=== PATIENT | female | born 1980 | race Caucasian/White ===

== ENCOUNTER → 2020-12-23 00:02 | Outpatient (CLI) | payer OTHER, SELFPAY ==
[2020-12-23 19:15] LABS: SARS-CoV-2 RNA PCR Negative
== END ==
PROVIDERS: Visit Provider Surgery Plastic and Reconstructive Surgery
DX: Z01.812 Encounter for preprocedural laboratory examination (principal); Z20.822 Contact with and (suspected) exposure to COVID-19
CPT/HCPCS: C9803; U0003; U0005

== ENCOUNTER 2020-12-23 08:03 | Outpatient (CLI) | payer OTHER, SELFPAY ==
[2020-12-23 08:28] LABS: Hematocrit 42.2 % (37.0-47.0); Hemoglobin 13.4 g/dL (12.0-15.0)
--- NOTE | 2020-12-23 08:30 | ECG_ITS ---
Measurements Intervals [place] Rate: 73 P: 53 LA: 178 QRS: 36 QRSD: 68 T: 37 QT: 369 QTc: 409 Interpretive Statements SINUS RHYTHM LOW QRS VOLTAGE IN PRECORDIAL LEADS BASELINE ARTIFACT- I, II, III, AVR, AVL, AVF, V6 BORDERLINE ECG Electronically Signed On 12-23-2020 8:22:20 CDT by Sha Cardoza D.O.
== END 2020-12-23 08:04 | disposition home or self-care (01) ==
PROVIDERS: Anesthesiology; Visit Provider Surgery Plastic and Reconstructive Surgery
DX: Z41.9 Encounter for procedure for purposes other than remedying health state, unspecified (principal); R94.31 Abnormal electrocardiogram [ECG] [EKG]
CPT/HCPCS: 36415; 85014; 85018; 93005

== ENCOUNTER 2020-12-26 00:34 | Day surgery (SDC) | payer OTHER, SELFPAY ==
[2020-12-17 09:55] VITALS: BMI 33.9
[2020-12-26] VITALS (10 sets, daily range): BP systolic 126–145; BP diastolic 85–98; PULSE 56–84; RESP 15–20; TEMP 36–36.5; O2SAT 96–100
[2020-12-26] MEDS: LACTATED RINGERS 1,000 ML 30 ML IV CONT ×2 (06:45→12:36)
[2020-12-26 06:47] LABS: Urine Cotinine NEGATIVE
--- NOTE | 2020-12-26 06:53 | WPDHPUPDATE1 ---
History and Physical Update Update Date/Time: 12/26/20 06:53 History and Physical has been reviewed, including an updated exam of the patient. There are NO changes in the patient's condition. Risks, benefits, and alternatives have been discussed and questions answered. Patient agrees to proceed with procedure.
--- NOTE | 2020-12-26 06:55 | WPDANESEPPF ---
Anes - Initial Pre Proc Eval Procedure: Operation Date: 12/26/20 07:30 Proposed Procedures p Bilateral Augmentation Mammoplasty With Breast Lift, - Ambrosio Muller MD s Abdominal Liposuction - Ambrosio Muller MD Date/Time: 12/26/20 06:55 Surgeon: Ambrosio Muller MD Pre Op Diagnosis: macromastia, breast ptosis, localized adiposity Patient Data Age: 40 Gender: F Height: 5 ft 9 in Weight: 104.3 kg Allergies Allergy/AdvReac Type Severity Reaction Status Date / Time No Known Allergies Allergy Verified 12/17/20 09:55 Home Medications Medication Instructions Recorded Confirmed Type docusate sodium 100 mg capsule 100 mg PO DAILY #14 cap 12/11/20 12/17/20 Rx ondansetron HCl 4 mg tablet 4 mg PO Q8H #28 tablet 12/11/20 12/17/20 Rx carisoprodol 350 mg tablet 350 mg PO TID PRN #21 tablet 12/12/20 12/17/20 Rx oxycodone-acetaminophen 5 mg-325 1 tablet PO Q6H PRN #15 tablet 12/12/20 12/17/20 Rx mg tablet Laboratory Tests 12/26/20 06:32 Cotinine Negative Patient hx anesthesia problems: none Family hx anesthesia problems: none PMFSH Social History Social History Smoking status: Never smoker Alcohol intake: current Alcohol use details: 1/MONTH Substance use: never Substance use type: does not use Living arrangements: with family Spiritual care concerns: No Anes - Eval Final PreProcedure Day of Procedure 12/26/20 06:55 Patient weight: overweight Heart: regular rate and rhythm Lungs: clear to auscultation Airway: Mallampati scale class II Neurological: alert and oriented Last oral intake: >/= 8 hours ASA classification: II Emergent: no Anesthetic plan: proceed Anesthesia type and monitoring: general LMA and standard monitoring Informed Consent: The patient's anesthetic plan and its attendant risks and benefits were discussed with the patient/family/POA. Questions were solicited and answers provided to the satisfaction of the patient/family/POA.
--- NOTE | 2020-12-26 07:18 | PM.PROC ---
Procedure Note - Detailed Date of procedure: 12/26/20 Pre-op diagnosis: macromastia, breast ptosis, localized adiposity Post-op diagnosis: same Procedure performed: 1. Bilateral breast augmentation 2. Bilateral breast mastopexy 3. Suction lipectomy of abdomen Description of procedure: She is here today for bilateral breast augmentation mastopexy with suction lipectomy of abdomen. Previously and again today the risks, benefits, alternatives were discussed in extensive detail. I wanted her to be very realistic about the risks involved as well as expectations. We discussed aftercare and what to monitor for. She understands she is at high risk of skin laxity of the abdomen. She must be willing to accept that to proceed and she is. Made sure answered all of her questions to her and her 's satisfaction today. They voiced understanding. Consent was obtained. Marked in the preoperative holding area with their verification. The patient was taken to the operating room placed supine on the operating table. Anesthesia was provided by anesthesiology. A surgical time-out was taken. We cleansed the skin and 1% lidocaine and 0.25% Marcaine with epinephrine was used anesthetize as a field block. She was prepped and draped in a standard sterile fashion. Tegaderm nipple Velázquez were placed. A 15 blade used to make an incision just above the inframammary fold. Dissection was continued until the chest wall as identified. I incised the pectoralis major along its inferior border and completely released the inferior border leaving the medial border intact. I created a subpectoral pocket in the appropriate dimensions based on our preoperative planning for the implant. I then copiously irrigated with saline solution and verified a strict hemostasis. Next the use a triple antibiotic and Betadine containing solution to irrigate the pocket. I washed my gloves with the triple antibiotic and Betadine solution. We washed the implant immediately upon opening it with this solution and only opened it when we needed it. I used implant funnel and no-touch technique. The implant was introduced into the pocket using the funnel. Having verified positioning of the implant this was closed using 2-0 Vicryl. At the T junction I de-epithelialized a flap to protect any exposure at the T junction of there were to be breakdown. I tailor tacked the breast into position and placed her in a sitting position. Marked out the nipple-areolar complex at 42 mm based on preoperative markings intraoperative observations and measurements which were all in full agreement. She was then placed supine. I de-epithelialized bilateral superior pedicles. Resected just what was necessary in order to provide a good closure of the central and inferior portion. Made sure it left good coverage of the implant. This was closed with 2-0 PDS on the vertical as well as along the IMF. 3-0 Monocryl in the vertical and around the areola. 3-0 strata fix along the IMF. Running subcuticular 4-0 Monocryl for complete closure and tissue glue. I did a thorough abdominal examination. Verified no hernias or other concerns palpable. Stab incisions were made and I tumesced with a tumescent solution. Once adequate time for hemostasis suction lipectomy was completed with 4 mm basket cannula in multiple planes and passes. This was based on S.A.F.E. technique principles. I did place her lateral decubitus position for a brief period during the procedure to ensure good contour. Dressings were placed. Patient was awoke and taken to PACU without difficulty. All instrument sponge counts were correct at the end of the case. Anesthesia: GETA Surgeon: Ambrosio Muller MD Estimated blood loss (mL): 50 Drains: No Packing: No Pathology: none sent Complications: No immediate complications Condition: stable Disposition: PACU Findings: Superior pedicle, Inverted T Bilateral Natrelle SoftTouch 290 cc silicone implants. Right: R
[2020-12-26] MEDS: SCOPOLAMINE 1.5 MG PATCH TRANSDERM (07:20)
[2020-12-26] MEDS: ceFAZolin 2 GM/D5W 50 ML 2 GM/50 ML BAG IVPB (07:30)
[2020-12-26] MEDS: LIDO 1%/EPINEPHRINE 1:100,000 50 ML VIAL INFILTRATE (09:50)
[2020-12-26] MEDS: BUPIVACAINE HCL 0.25% PF 30 ML VIAL INFILTRATE (09:52)
[2020-12-26] MEDS: LACTATED RINGERS IRRIG 1,000 ML, LIDOCAINE HCL 1% LOCAL INJ 50 ML, EPINEPHrine HCL INJ ... INFILTRATE (10:30)
--- NOTE | 2020-12-26 12:51 | SUR.PHASEI ---
O2 removed at 1247.
[2020-12-26] MEDS: HYDROmorphone HCL INJ (*CRX) 1 MG/ML SYR 0.5 MG IV PUSH ×2 (13:05→13:15)
[2020-12-26] MEDS: oxyCODONE HCL (*CRX) 5 MG TAB IR PO (13:49)
[2020-12-26] MEDS: TRANEXAMIC ACID 1,000MG/ISO100 1,000 MG/100 ML BAG 200 MG IVPB (13:54)
== END 2020-12-26 14:45 | disposition home or self-care (01) ==
PROVIDERS: Visit Provider Surgery Plastic and Reconstructive Surgery
PROC: (CPT 19325; principal; 2020-12-26 07:30)
PROC: (CPT 15877; 2020-12-26 07:30)
DX: Z41.1 Encounter for cosmetic surgery (principal); N64.82 Hypoplasia of breast; E65 Localized adiposity; N64.81 Ptosis of breast; Z79.899 Other long term (current) drug therapy
CPT/HCPCS: 19325; 19316; 15877; 80307; 88305; A9270; J0171; J0330; J0690; J1100; J1170; J1200; J1580; J2250; J2405; J2704; J3010; J7030; J7120